=== PATIENT | male | born 1990 | race Caucasian/White ===

== ENCOUNTER 2018-02-24 19:38 | Emergency (ER) | payer OTHER ==
[~2018-02-24] VITALS: Ht 172.7 cm; Wt 60.0 kg
[~2018-02-24 19:38] MED LIST: SUMA25TA12 PO
[2018-02-24 19:44] VITALS: TEMP 36.2; Ht 172.7 cm; Wt 60.0 kg
[2018-02-24] MEDS ORDERED: SODIUM CHLORIDE 0.9% 1000ML 2,000 ML IV STA (19:56)
[2018-02-24] MEDS ORDERED: DiphenhydrAMINE HCL 50 MG/ML VIAL IV STA (19:56)
[2018-02-24] MEDS ORDERED: METOCLOPRAMIDE HCL INJ 5 MG/ML 2 ML VIAL IV STA (19:56)
[2018-02-24] MEDS ORDERED: FAMOTIDINE 20 MG TAB PO ONE (20:00)
--- NOTE | 2018-02-24 20:06 | EMERGENCY ROOM VISIT NOTE ---
History Report prepared by Jaleesa: Jeffrey Jaocb Under the Supervision of: Dr. Noah Parrish M.D. First contact with patient: 19:47 Chief Complaint: FLU LIKE SX Stated Complaint: VOMITING, SEVERE STOMACH CRAMPS, SHAKES History of Present Illness The patient is a 27 year old male who presents to the Emergency Room with complaints of constant migraine headache beginning 4.5 hours ago. The patient states he was fine all day and went to work. He reports he gradually developed his migraine throughout the day and suddenly developed his vomiting when he got home. The patient notes he has a history of migraines and has not had one for a few months. He states these feels like a typical migraine. The patient reports his head pressure will go away, and then he will become nauseous and vomit. The patient states he has vomited around 15 times. He notes his nausea will go away , and his head pressure will return. The patient states he was sitting at home eating a few bites of popcorn before his vomiting started. He reports he did not eat breakfast or lunch, and now eating and drinking makes his symptoms worse. The patient notes lying on his stomach makes his symptoms better. He states he tried to take his Imitrex, but he vomited and could not keep it down. The patient denies diarrhea, cough, and congestion. He states he takes Suboxone in the morning for detoxification. The patient reports he was able to take it and keep it down this morning. He notes he has been clean for the past two years. Source of History: patient Onset: 4.5 hours ago Position: head Quality: ache, other (migraine) Timing: constant Modifying Factors (Worsening): eating, drinking Modifying Factors (Relieving): other (lying on his stomach) Associated Symptoms: + nausea, + vomiting, No cough, No diarrhea Note: Denies: congestion Review of Systems See HPI for pertinent positives and negatives. A total of ten systems were reviewed and were otherwise negative. Past Medical & Surgical Medical Problems: (1) Migraine Family History Patient reports no known family medical history. Social History Smoking Status: Current Every Day Smoker Marital Status: single Housing Status: lives with family Occupation Status: employed Current/Historical Medications Scheduled Buprenorphine Hcl-Naloxone Hcl (Suboxone 8-2 Mg), 1 TAB SL DAILY Allergies Coded Allergies: No Known Allergies (Unverified , 4/12/18) Physical Exam Vital Signs Date Time Temp Pulse Resp B/P (MAP) Pulse Ox O2 Delivery O2 Flow Rate FiO2 02/24/18 22:43 85 16 139/82 100 Room Air 02/24/18 20:30 91 02/24/18 20:26 79 16 100 Room Air 02/24/18 19:44 36.2 91 18 145/86 100 Room Air Physical Exam GENERAL: Awake, alert, fatigued, uncomfortable-appearing, in no distress HENT: Normocephalic, atraumatic. Oropharynx has dry mucous membranes, otherwise unremarkable. EYES: Normal conjunctiva. Sclera non-icteric. NECK: Supple. No nuchal rigidity. FROM. No JVD. RESPIRATORY: Clear to auscultation. CARDIAC: Regular rate, normal rhythm. Extremities warm and well perfused. Pulses equal. ABDOMEN: Soft, non-distended. Mild epigastric discomfort with no discrete tenderness to palpation. No rebound or guarding. No masses. Negative Huynh's. RECTAL: Deferred. MUSCULOSKELETAL: Chest examination reveals no tenderness. The back is symmetrical on inspection without obvious abnormality. There is no CVA tenderness to palpation. No joint edema. LOWER EXTREMITIES: Calves are equal size bilaterally and non-tender. No edema. No discoloration. NEURO: Normal sensorium. No sensory or motor deficits noted. SKIN: No rash or jaundice noted. Medical Decision & Procedures Laboratory Results 02/24/18 20:15 Red Blood Count 5.42, Mean Corpuscular Volume 84.7, Mean Corpuscular Hemoglobin 30.8, Mean Corpuscular Hemoglobin Concent 36.4, Mean Platelet Volume 9.5, Neutrophils (%) (Auto) 82.3, Lymphocytes (%) (Auto) 12.6, Monocytes (%) (Auto) 4.5, Eosinophils (%) (Auto) 0.2, Basophils (%) (Auto) 0.2, Neutrophils # (Auto) 14.14, Lymphocytes # (Auto) 2.16, Monocytes # (Auto) 0.77, Eosinophils # (Auto) 0.04, Basophils # (Auto) 0.04 02/24/18 20:15 Test 02/24/18 20:15 02/24/18 20:20 White Blood Count 17.19 K/uL (4.8-10.8) Red Blood Count 5.42 M/uL (4.7-6.1) Hemoglobin 16.7 g/dL (14.0-18.0) Hematocrit 45.9 % (42-52) Mean Corpuscular Volume 84.7 fL (80-100) Mean Corpuscular Hemoglobin 30.8 pg (25-34) Mean Corpuscular Hemoglobin Concent 36.4 g/dl (32-36) Platelet Count 301 K/uL (130-400) Mean Platelet Volume 9.5 fL (7.4-10.4) Neutrophils (%) (Auto) 82.3 % Lymphocytes (%) (Auto) 12.6 % Monocytes (%) (Auto) 4.5 % Eosinophils (%) (Auto) 0.2 % Basophils (%) (Auto) 0.2 % Neutrophils # (Auto) 14.14 K/uL (1.4-6.5) Lymphocytes # (Auto) 2.16 K/uL (1.2-3.4) Monocytes # (Auto) 0.77 K/uL (0.11-0.59) Eosinophils # (Auto) 0.04 K/uL (0-0.5) Basophils # (Auto) 0.04 K/uL (0-0.2) RDW Standard Deviation 40.3 fL (36.4-46.3) RDW Coefficient of Variation 13.1 % (11.5-14.5) Immature Granulocyte % (Auto) 0.2 % Immature Granulocyte # (Auto) 0.04 K/uL (0.00-0.02) Anion Gap 5.0 mmol/L (3-11) Est Creatinine Clear Calc Drug Dose 99.8 ml/min Estimated GFR () 126.8 Estimated GFR (Non- 109.4 BUN/Creatinine Ratio 13.6 (10-20) Calcium Level 10.1 mg/dl (8.5-10.1) Total Bilirubin 0.5 mg/dl (0.2-1) Direct Bilirubin 0.1 mg/dl (0-0.2) Aspartate Amino Transf (AST/SGOT) 40 U/L (15-37) Alanine Aminotransferase (ALT/SGPT) 49 U/L (12-78) Alkaline Phosphatase 88 U/L (45-117) Total Protein 8.3 gm/dl (6.4-8.2) Albumin 5.2 gm/dl (3.4-5.0) Lipase 179 U/L (73-393) Influenza Type A (RT-PCR) Neg for Influ A (NEG) Influenza Type B (RT-PCR) Neg for Influ B (NEG) Laboratory results reviewed by me Medications Administered Medications (Trade) Dose Ordered Sig/Mya Route Start Time Stop Time Status Last Admin Dose Admin Sodium Chloride 2,000 ml @ 999 mls/hr Q2H1M STAT IV 02/24/18 19:56 02/24/18 21:56 DC 02/24/18 20:20 999 MLS/HR Metoclopramide HCl (Reglan Inj) 10 mg NOW STAT IV 02/24/18 19:56 02/24/18 20:01 DC 02/24/18 20:19 10 MG Diphenhydramine HCl (Benadryl Inj) 25 mg NOW STAT IV 02/24/18 19:56 02/24/18 20:01 DC 02/24/18 20:20 25 MG Famotidine (Pepcid Tab) 20 mg NOW ONCE PO 02/24/18 20:00 02/24/18 20:01 DC 02/24/18 20:20 20 MG ED Course 1950: The patient was evaluated in room A02. A complete history and physical exam was performed. 2143: I reevaluated the patient. He is feeling better. We will see if the patient can tolerate PO. Discussed results and discharge instructions: he verbalized understanding and agreement. 0: The patient was able to tolerate PO. The patient is ready for discharge. Medical Decision I reviewed the patient's past medical history, medications, and the nursing notes as described above. Differential diagnosis: Etiologies such as migraine headache, meningitis, sinusitis, CO exposure, ICH, SAH, infection, tumor, headache, sinus thrombosis, arterial dissection, gastroenteritis, food borne illness, infections, appendicitis, diverticulitis, inflammatory bowel disease, obstruction, GI bleed, biliary pathology, as well as others were entertained. The patient is a 27 y/o gentleman with a pmhx of migraines and remote substance abuse on suboxone who presents to the ED with onset of his typical migraine, which is accompanied by severe n/v, wretching. Of note, patient takes his Suboxone in the AM and so took this well before his symptoms began. The patient reports gradual onset of his migraine as usual today and then began to wretch incessantly and was unable to take his Imitrex. Denies any recent cough, congestion, diarrhea. WBC 17, nonspecific and likely acute phase reactant given the patients prolonged wretching. Chemistry unremarkable. Flu negative. Patient with resolution of symptoms after migraine cocktail, IVF hydration. Medication Reconcilliation Current Medication List: was personally reviewed by me Blood Pressure Screening Patient's blood pressure: Normal blood pressure Blood pressure disposition: Did not require urgent referral Impression Primary Impression: Migraine Scribe Attestation The scribe's documentation has been prepared under my direction and personally reviewed by me in its entirety. I confirm that the note above accurately reflects all work, treatment, procedures, and medical decision making performed by me. Departure Information Dispostion Home / Self-Care Referrals No Doctor, Assigned (PCP) Forms HOME CARE DOCUMENTATION FORM, IMPORTANT VISIT INFORMATION Patient Instructions ED Headache Migraine, ED Nausea Vomiting, My [facility] Additional Instructions Please follow up with your primary care physician in the next 1-3 days for re- evaluation. Your symptoms are most likely related to your migraines. Otherwise, your exam and lab results did not show signs of an emergent condition at this time. Continue your current medications as prescribed. Drink plenty of fluids to ensure hydration. Return to the emergency department for worsening symptoms as described in the accompanying instructions.
[2018-02-24 20:28] LABS: BASO % 0.2 %; BASO ABS # 0.04 K/uL (0-0.2); EOS % 0.2 %; EOS ABS # 0.04 K/uL (0-0.5); HEMATOCRIT 45.9 % (42-52); HEMOGLOBIN 16.7 g/dL (14.0-18.0); IG# 0.04 K/uL (0.00-0.02); LYMPH % 12.6 %; LYMPH ABS # 2.16 K/uL (1.2-3.4); MEAN CELL VOLUME 84.7 fL (80-100); MEAN CORPUSCULAR HEMOGLOBIN 30.8 pg (25-34); MEAN CORPUSCULAR HGB CONC 36.4 g/dl (32-36); MEAN PLATELET VOLUME 9.5 fL (7.4-10.4); MONO % 4.5 %; MONO ABS # 0.77 K/uL (0.11-0.59); NEUT % 82.3 %; NEUT ABS # 14.14 K/uL (1.4-6.5); PLATELET COUNT 301 K/uL (130-400); RED CELL DISTRIBUTION WIDTH CV 13.1 % (11.5-14.5); RED CELL DISTRIBUTION WIDTH SD 40.3 fL (36.4-46.3); WHITE BLOOD COUNT 17.19 K/uL (4.8-10.8)
[2018-02-24] MEDS ORDERED: BUPR1SUB23 SL (20:28)
[2018-02-24 20:54] LABS: ALBUMIN 5.2 gm/dl (3.4-5.0); CALCIUM 10.1 mg/dl (8.5-10.1); CREATININE 0.96 mg/dl (0.60-1.40); POTASSIUM 3.7 mmol/L (3.5-5.1)
[2018-02-24 20:57] LABS: TOTAL PROTEIN 8.3 gm/dl (6.4-8.2)
[2018-02-24 21:26] LABS: INFLUENZA A PCR Neg for Influ A (NEG); INFLUENZA B PCR Neg for Influ B (NEG)
[2018-02-24 22:43] VITALS: BP 139/82; PULSE 85; O2SAT 100
== END 2018-02-24 22:44 | disposition home or self-care (01) ==
LOC: C.EDB 19:39 → C.EDA 22:44
DX: G43.909 Migraine, unspecified, not intractable, without status migrainosus (principal); F17.200 Nicotine dependence, unspecified, uncomplicated